=== PATIENT | female | born 1955 | race Caucasian/White ===

== ENCOUNTER 2019-05-06 07:10 | Emergency (ER) | payer SELFPAY ==
--- NOTE | 2019-05-06 07:26 | ED Physician Documentation ---
Chest Pain - HISTORIAN Historian: patient - HPI Stated Complaint: nausea and vomiting and chest pain Chief Complaint: General Adult Onset: days ago (1) Timing: sudden onset Duration: waxing, waning Last known Well Date: 05/05/19 Last Known Well Time: 21:00 Last known Well Code/Unknown Code: Unknown Context: other (after eating ) Severity: mild Quality: other (she reports the pain is "not all the time" she has pain after eating and directly prior to vomiting mid chest) Chest Pain Radiation: no radiation Chest Pain Signs/Symptoms: nausea Worsened By: nothing Relieved By: other (vomiting ) Further Comments: yes (she reports (via help in speaking full [place]ish) She reports she had some mild epigastric pain then she did have pizza and there was increased pain and she had an episode of vomiting and she had improvement in symtpoms . She had food again and the pain returned she had two more episodes of vomiting with resolution of pain. She has not tried any OTC meds. She denies any radiaiton. She has no other compalints. She had a normal bowel movment today) - ROS CONST: none MS/LYMPH: none GI/: abdominal pain, vomiting, nausea. denies: problems urinating, diarrhea EYES/ENT: none SKIN/ENDO: none NEURO/PSYCH: none - PAST HX DE risk factors: no pertinent history GI disease: none Lung disease: none Surgeries/Procedures: none Allergies/Adverse Reactions: Allergies Allergy/AdvReac Type Severity Reaction Status Date / Time No Known Allergies Allergy Verified 05/06/19 07:38 Home Medications: Ambulatory Orders Medication Instructions Recorded NK 05/06/19 - SOCIAL HX Smoking History: non-smoker Alcohol Use: none Drug Use: none - FAMILY HX Family HX: none - REVIEWED ASSESSMENTS Nursing Assessment Reviewed: Yes Vitals Reviewed: Yes Progress - Progress Progress: 0900: states nausea is improved no current pain DG 0915: Discussed results and plan she and are agreeable DG Chest Pain Physical Exam - EXAM General Appearance: no acute distress, alert EENT: eye inspection normal, pharynx normal, no signs of dehydration Neck: nml inspection Respiratory: no resp. distress, chest non-tender, nml breath sounds CVS: reg. rate & rhythm Abdomen: soft, normal bowel sounds, no distension, tenderness (epigastric area ). No: guarding Skin: warm/dry Extremities: non-tender, normal range of motion, no evidence of injury, no edema Neuro: oriented X3 Discharge Clincal Impression: Reflux esophagitis Referrals: Primary Doctor,No [Primary Care Provider] - 2 Days Comments: 1. Meds as prescribed 2. No spicy foods 3. Sit upright for one hour post meals 4. Follow up with PCP In 2 days 5. Return to ER for any increasing concerns Condition: Stable Disposition: 01 HOME, SELF-CARE Decision to Admit: NO Date of Decison to Admit: 05/06/19 Decision Time: 09:20
[2019-05-06] MEDS ORDERED: 0.9 % SODIUM CHLORIDE 1,000 ML IV ONE (07:27)
[2019-05-06] MEDS ORDERED: ASPIRIN 81 MG CHEW TAB PO ONE (07:27)
[2019-05-06] MEDS ORDERED: ONDANSETRON HCL/PF 4 MG/ 2ML VIAL IVP ONE (07:28)
[2019-05-06 07:33] LABS: BASOPHILS % 0.4 % (0.0-1.5); NEUTROPHILS # 7.3 # k/uL (1.4-7.7)
[2019-05-06 07:59] LABS: eGFR (Non-African) > 60
[2019-05-06] MEDS ORDERED: MAG HYDROX/ALUMINUM HYD/SIMETH 30 ML, Lidocaine 2% Viscous 15 ML PO ONE ×2 (08:58)
[2019-05-06 10:18] VITALS: BP 149/73
--- NOTE | 2019-05-07 09:25 | Diagnostic Imaging Report ---
BELKIS BANKS [facility] [address] [facility] [address] [address] [place], [place]. [address] Report Submission Date: May 06, 2019 8:51:43 AM CDT Patient Study Name: MICHAEL PORTER Date: May 06, 2019 8:29:12 AM CDT Modality Type: DX Gender: F Description: CHEST 1VIEW : 53 Institution: [facility] Physician: BELKIS BANKS Exam: AP chest. History: Chest pain. No previous studies are available for comparison. Lung haskins are well aerated without doni consolidation or effusion. Heart size is normal. No bony abnormalities are identified. Impression: No doni consolidation or effusion. Electronically signed on May 06, 2019 8:51:43 AM CDT by: Jose TORRES
== END 2019-05-06 09:30 | disposition home or self-care (01) ==
LOC: ED 07:10
DX: Z00.01 Encounter for general adult medical examination with abnormal findings (principal); K21.0 Gastro-esophageal reflux disease with esophagitis
CPT/HCPCS: 71045; 80053; 82553; 84484; 85025; 96360; 99284; J2405; A9270-GY; J7030; S1016